=== PATIENT | female | born 1955 | race African-American/Black ===

== ENCOUNTER 2017-08-08 23:08 | Emergency (ER) | payer OTHER ==
[~2017-08-08] VITALS: Ht 177.8 cm; Wt 68.5 kg
[2017-08-08 23:09] VITALS: BP 128/79
[2017-08-08] MEDS ORDERED: DEXT10TA7 PO (23:27)
[2017-08-08] MEDS ORDERED: CLON0.5T PO (23:28)
== END 2017-08-08 23:55 | disposition home or self-care (01) ==
LOC: ED 23:49
DX: J20.8 Acute bronchitis due to other specified organisms (principal); M70.22 Olecranon bursitis, left elbow
CPT/HCPCS: 99283

== ENCOUNTER 2017-08-17 07:02 | Emergency (ER) | payer MEDICARE, OTHER ==
[~2017-08-17] VITALS: Ht 177.8 cm; Wt 67.1 kg
[~2017-08-17 07:02] MED LIST: CLON0.5T PO; DEXT10TA7 PO
[2017-08-17 07:03] VITALS: BP 145/84
== END 2017-08-17 07:37 | disposition home or self-care (01) ==
LOC: ED 07:36
DX: B86 Scabies (principal)
CPT/HCPCS: 99283